=== PATIENT | female | born 1965 | race Hispanic/Latino ===

== ENCOUNTER → 2021-07-10 | Outpatient (CLI) | payer OTHER | END | disposition home or self-care (01) | LOC: SHCH 13:07 | PROVIDERS: ATTEND Internal Medicine Cardiovascular Disease | DX: R01.1 Cardiac murmur, unspecified (principal) | CPT/HCPCS: 93306 ==

== ENCOUNTER 2025-02-04 19:40 | Emergency (ER) | payer BC, OTHER ==
[~2025-02-04] VITALS: Ht 157.5 cm; Wt 70.8 kg
--- NOTE | 2025-02-04 19:47 | NUR ---
PT CARE ASSUMED AT THIS TIME
[2025-02-04] MEDS ORDERED: ALBUTEROL 0.083% 2.5 MG/3 ML INH IH ONE (20:00)
--- NOTE | 2025-02-04 20:02 | ERN ---
ED Note History of Present Illness Stated Complaint: HEADACHE, NECK PAIN Chief Complaint: Multiple Complaints Time Seen by MD: 19:42 Dictation: PATIENT IS A 60-YEAR-OLD FEMALE HERE WITH HER WITH COMPLAINTS OF AN OCCIPITAL HEADACHE WITH POSTERIOR NECK PAIN THAT RADIATES TO BOTH TEMPLES ONSET WAS NINE MONTHS AGO. SHE DENIES FEVER CHILLS NAUSEA VOMITING. NO HISTORY OF PRIOR TRAUMAS TUMORS MASSES. SHE HAS ALREADY BEEN TO SEE HER DOCTOR AT [facility], WHO WAS PERFORMED ULTRASOUNDS AND AN MRI OF THE BRAIN. SHE SAID SHE HAS A AN APPOINTMENT WITH HER REPAIR TABLE [facility] IN [place] NEXT WEEK FOR CAROTID STENOSIS WHICH IS APPROXIMATELY 50 %. SHE WAS PRESCRIBED BY HER DOCTOR MELOXICAM AND BACLOFEN HOWEVER DOES NOT TAKE IT BECAUSE WHEN HER PAIN IS GONE SHE DOES NOT NEED IT ON-CALL. SAID SHE DID TAKE IT TODAY AND THEN CAME IN TODAY FOR FURTHER EVALUATION AND TREATMENT [facility] IS 0. PATIENT'S AT BEDSIDE STATES SHE IS NOT COMPLIANT WITH HER MEDICATIONS Allergies: Coded Allergies: No Known Allergies (Unverified Allergy, Unknown, 02/04/25) Past Medical History Past Medical History: High Cholesterol, Hypertension Surgical History: Hysterectomy, Cholecystectomy History: Not Applicable RN Note Reviewed/Agreed w/PFSH: Yes Review of System Dictation ALWAYS CONSTITUTIONAL: NEGATIVE EXCEPT FOR HPI HEAD/FACE: NEGATIVE EXCEPT FOR HPI EENT: NEGATIVE EXCEPT FOR HPI RESPIRATORY: NEGATIVE EXCEPT FOR HPI GASTROINTESTINAL/ABDOMINAL: NEGATIVE EXCEPT FOR HPI GENITOURINARY: NEGATIVE EXCEPT FOR HPI MUSCULOSKELETAL: NEGATIVE EXCEPT FOR HPI POSTERIOR CERVICAL NECK PAIN INTEGUMENTARY: NEGATIVE EXCEPT FOR HPI NEUROLOGICAL/PSYCH: NEGATIVE EXCEPT FOR HPI OCCIPITAL HEADACHE HEMATOLOGIC/LYMPHATIC: NEGATIVE EXCEPT FOR HPI ALL SYSTEMS NEGATIVE, EXCEPT NOTED ABOVE. 13 POINT REVIEW OF SYSTEMS ASSESSED AND ALL NEGATIVE EXCEPT FOR ABOVE. Initial Vital Sign VS Vital Signs Date Time Temp Pulse Resp B/P (MAP) Pulse Ox O2 Delivery O2 Flow Rate FiO2 02/04/25 19:42 97.3 71 18 124/71 98 Room Air 02/04/25 20:02 0 21 Physical Exam Dictation VITAL SIGNS REVIEWED GENERAL APPEARANCE: ALERT, ORIENTED X 3, N MILD ACUTE DISTRESS, WELL DEVELOPED, NOURISHED. HEAD AND FACE: NON-TRAUMATIC. EYES: PERRL, PINK CONJUNCTIVAS, EYELID NO TRAUMA, ANTERIOR CHAMBER WITH ARCUS SENILIS. EARS: PINNAS INTACT AND NO SIGNS OF TRAUMA OR ERYTHEMA EAR CANALS CLEAR AND NO DISCHARGE TM NO ERYTHEMA NOSE: NO DISCHARGE, NO BLEEDING. OROPHARYNX: MOUTH NORMAL, TONGUE PINK, PHARYNX CLEAR,NO ERYTHEMA, TONSILS NO EXUDATES, NO ABSCESSES NOTED, MUCOUS MEMBRANE MOIST NECK: SUPPLE, NON-TENDER, NO THYROMEGALY, NO MASSES, NO JVD, NO BRUITS BREAST:DEFERRED CHEST:NO TENDERNESS, NO CREPITUS, NO PARADOXICAL MOVEMENT, NO RETRACTIONS LUNGS:CLEAR, WELL-VENTILATED, SYMMETRIC, NO RALES, NO WHEEZING, NO RHONCHI, NO STRIDOR, GOOD BREATH SOUNDS BILATERALLY HEART: REGULAR RATE, REGULAR RHYTHM, NO MURMUR, NO GALLOPS VASCULAR: NO PERIPHERAL EDEMA, ABDOMEN: SOFT, POSITIVE BOWEL SOUNDS, NONDISTENDED, NO GUARDING, NONTENDER, NO REBOUND, NO MASSES NO HEPATOMEGALY, NO SPLENOMEGALY, NO LAWS'S SIGN, NO HERNIAS. RECTAL: DEFERRED GENITAL: DEFERRED NEUROLOGICAL: NORMAL SPEECH, MOTOR FUNCTION INTACT, SENSORY FUNCTION INTACT NIH IS 0 MUSCULOSKELETAL: NECK NONTENDER, FULL RANGE OF MOTION, BACK NONTENDER, FULL RANGE OF MOTION, EXTREMITIES: NONTENDER, FULL RANGE OF MOTION SKIN: COLOR PINK, DRY, NO TURGOR, NO RASH, NO LACERATIONS, NO ABRASIONS, NO CONTUSIONS. LYMPHATIC: DEFERRED Results (Laboratory/Radiology) Laboratory/Radiology Laboratory Tests Test 02/04/25 20:13 White Blood Count 6.5 K/uL (4.8-10.8) Red Blood Count 3.97 MIL/uL (4.00-5.50) L Hemoglobin 12.3 g/dL (12.0-16.0) Hematocrit 38.2 % (36-48) Mean Corpuscular Volume 96.2 fL (79-99) Mean Corpuscular Hemoglobin 31.0 pg (27.0-33.0) Mean Corpuscular Hemoglobin Concent 32.2 g/dL (32.0-36.0) Red Cell Distribution Width 13.0 % (11.0-15.5) Platelet Count 225 K/uL (130-400) Mean Platelet Volume 11.0 fL (7.5-10.5) H Immature Granulocyte % (Auto) 0.5 % (0-1) Neutrophils (%) (Auto) 52.8 % (40.0-77.0) Lymphocytes (%) (Auto) 36.4 % (21.0-51.0) Monocytes (%) (Auto) 8.8 % (3.0-13.0) Eosinophils (%) (Auto) 1.2 % (0.0-8.0) Basophils (%) (Auto) 0.3 % (0.0-5.0) Neutrophils # (Auto) 3.4 K/uL (1.8-7.7) Lymphocytes # (Auto) 2.4 K/uL (1.0-4.8) Monocytes # (Auto) 0.6 K/uL (0.1-1.0) Eosinophils # (Auto) 0.08 K/uL (0.00-0.70) Basophils # (Auto) 0.02 K/uL (0.00-0.20) Absolute Immature Granulocyte (auto 0.03 K/uL (0-1) Nucleated Red Blood Cells 0.0 % (0.0-0.19) Sodium Level 144 mmol/L (136-145) Potassium Level 3.4 mmol/L (3.5-5.1) L Chloride Level 106 mmol/L (101-111) Carbon Dioxide Level 28 mmol/L (21-32) Blood Urea Nitrogen 12 mg/dL (7-18) Creatinine 0.7 mg/dL (0.5-1.0) Glomerular Filtration Rate Calc 98 mL/min (>90) Random Glucose 108 mg/dL (70-105) H Total Calcium 8.5 mg/dL (8.5-10.1) Labs Reviewed?: Yes ED Course ED Course Orders Procedure Category Date Status Time Albuterol 0.083% PHA 02/04/25 Complete 2.5mg/3ml (Proventil 20:00 Dexamethasone 4mg/Ml PHA 02/04/25 Complete 1ml Vial (Dexametha 20:00 Cbc With Differential LAB 02/04/25 Complete 19:56 Basic Metabolic Panel LAB 02/04/25 Complete 19:56 Ketorolac 60mg/2ml PHA 02/04/25 Complete (Toradol 60mg/2ml) 20:00 Acetaminophen With PHA 02/04/25 Complete Codeine (Tylenol-Code 20:00 Cyclobenzaprine Hcl PHA 02/04/25 Complete (Cyclobenzaprine Hcl 20:00 Potassium Bicarb/Cit PHA 02/04/25 Complete Ac 25meq (K-Lyte Ta 21:00 Current Medications Medications (Trade) Dose Ordered Sig/Jeanine Route PRN Reason Start Time Stop Time Status Last Admin Dose Admin Acetaminophen/ Codeine Phosphate (TYLenol-coDEINE TAB) 2 tab ONCE ONCE PO 02/04/25 20:00 02/04/25 20:01 DC 02/04/25 20:09 Albuterol Sulfate (Proventil 0.083% 2.5mg/3ml) 5 mg ONCE ONCE IH 02/04/25 20:00 02/04/25 19:47 DC Cyclobenzaprine HCl (Cyclobenzaprine HCl) 10 mg ONCE ONCE PO 02/04/25 20:00 02/04/25 20:01 DC 02/04/25 20:09 Dexamethasone Sodium Phosphate (dexaMETHasone 4MG/ML 1ML VIAL) 8 mg ONCE ONCE IVP 02/04/25 20:00 02/04/25 19:47 DC Ketorolac Tromethamine (toRADol 60MG/ 2ML) 60 mg ONCE ONCE IM 02/04/25 20:00 02/04/25 20:01 DC 02/04/25 20:11 Potassium Bicarbonate (K-Lyte Tablet Eff 25 Meq Tablet.eff) 25 meq ONCE ONCE PO 02/04/25 21:00 02/04/25 21:01 DC 02/04/25 20:47 Vital Signs Date Time Temp Pulse Resp B/P (MAP) Pulse Ox O2 Delivery O2 Flow Rate FiO2 02/04/25 20:02 98.2 67 18 138/74 98 Room Air* 0 21 02/04/25 19:42 97.3 71 18 124/71 98 Room Air 2100/PATIENT STATES PAIN IS MARKEDLY IMPROVED AFTER TREATMENT. SHE WILL BE DISCHARGED HOME WITH DIAGNOSIS OF ACUTE TENSION HEADACHE. PRESCRIBED FIORICET NEUROLOGICALLY INTACT POTASSIUM WAS REPLACED Medical Decision Making MDM MEDICAL DISCHARGE MAKING BASED ON BASIC LABS TO AN REAL ANEMIA INFECTION ELEC TROLYTE IMBALANCE ETC.. MILD HYPERGLYCEMIA WITH POTASSIUM 3.4, THIS WAS REPLACED PATIENT WAS TREATED FOR TENSION HEADACHE STATES HER PAIN IS ALMOST RESOLVED DISCHARGED HOME WITH FIORICET DX & DISP Disposition: Discharge Departure Impression: Primary Impression: Tension headache Additional Impressions: Hypokalemia, Hyperglycemia Condition: Stable Scripts Butalb/Acetaminophen/Caffeine (Fioricet) 50 Mg-325 Mg-40 Mg Tab 2 TAB PO Q4PRN for HEADACHE, #20 TAB 0 Refills Prov: AURY HOWARD 02/04/25 Additional Instructions: Follow-up with primary care provider in 1 to 2 days. Take medications as directed here in the emergency room. Okay to continue home medications unless otherwise discussed during your visit in the emergency room today. Return to your nearest emergency room if symptoms worsen or if there is no improvement. Call 911 if you need immediate assistance. Take Tylenol or Motrin [id number] as needed and if no contraindications are present. Increase oral hydration. A wound culture or urine culture was ordered here in the emergency room department please follow-up with primary care provider and advise them to get repeat ports from our facility. If you had any Yonny wrap/splints that were applied here, please do not remove them until you see your primary care or specialty. Take Fioricet as directed for your tension headache. Increase your water intake. See your primary care doctor for follow up and manage Referrals: ABI WHEELER MD (PCP) Time of Disposition: 21:03 I have reviewed the case, and I agree with, Diagnosis and Plan AURY HOWARD Feb 04, 2025 20:02
[2025-02-04] MEDS: CYCLOBENZAPRINE HCL 10 MG TABLET PO ONE (20:09)
[2025-02-04 20:21] LABS: IMMATURE GRANULOCYTE ABSOLUTE 0.03 K/uL (0-1); NUCLEATED RED BLOOD CELLS 0.0 % (0.0-0.19); PLATELET COUNT (AUTO) 225 K/uL (130-400); RED BLOOD CELL COUNT(AUTO) 3.97 MIL/uL (4.00-5.50); RED CELL DISTRIBUTION WIDTH 13.0 % (11.0-15.5); WHITE BLOOD COUNT (AUTO) 6.5 K/uL (4.8-10.8)
[2025-02-04 20:33] LABS: CREATININE 0.7 mg/dL (0.5-1.0); GLOMERULAR FILTR. RATE CALC 98.0 mL/min (>90); GLUCOSE,RANDOM 108.0 mg/dL (70-105); SODIUM SERUM 144.0 mmol/L (136-145); UREA NITROGEN, BLOOD 12.0 mg/dL (7-18)
[2025-02-04] MEDS ORDERED: FIORIT PO (21:04)
[2025-02-04 21:07] VITALS: BP 110/71; PULSE 59; RESP 16; TEMP 98.3; O2SAT 98
== END 2025-02-04 21:22 | disposition home or self-care (01) ==
LOC: EDH 19:40
DX: G44.209 Tension-type headache, unspecified, not intractable (principal); M54.2 Cervicalgia; E87.6 Hypokalemia; R73.9 Hyperglycemia, unspecified; I10 Essential (primary) hypertension; E78.00 Pure hypercholesterolemia, unspecified; Z90.49 Acquired absence of other specified parts of digestive tract; Z90.710 Acquired absence of both cervix and uterus
CPT/HCPCS: 99284; 80048; 85025; 36415; 96372; J1885